=== PATIENT | male | born 1940 | race Caucasian/White ===

== ENCOUNTER 2016-10-03 12:34 | Observation (INO) | payer MEDICARE, BC ==
[2016-10-03] VITALS (9 sets, daily range): BP systolic 111–172; BP diastolic 65–88; PULSE 92–100; TEMP 97.2–98.5
[~2016-10-03] VITALS: Ht 177.8 cm; Wt 77.7 kg
[~2016-10-03 12:34] MED LIST: ASPIR-LOW81 MG PO; LISINOPRIL20 MG PO; NORVASC 5MG5 MG/TAB PO; UROCIT PO; ZOCOR40 MG PO
[2016-10-03] MEDS ORDERED: ZOCOR 40MG40 MG PO (13:54)
[2016-10-03] MEDS ORDERED: CELEXA40 MG PO (13:55)
[2016-10-03] MEDS ORDERED: RAZADYNE8 MG PO (13:57)
[2016-10-03] MEDS ORDERED: COZAAR 25MG25 MG/TAB PO (14:00)
[2016-10-03] MEDS ORDERED: NAMENDA XR 28MG PO (14:01)
[2016-10-03] MEDS ORDERED: PRESERVISIONLUT PO (14:02)
== END 2016-10-04 07:10 | disposition home or self-care (01) ==
LOC: SURG 12:34 → SDCO 12:34 → SURG 13:48 → SDCO 17:15 → SURG 20:45
DX: N20.1 Calculus of ureter (principal); I10 Essential (primary) hypertension; E78.5 Hyperlipidemia, unspecified; Z87.442 Personal history of urinary calculi
CPT/HCPCS: C1769; C1894; C2617; G0378; G0379; J0690; J1100; J2405; J2704; J3010; J7030; Q9967

== ENCOUNTER → 2017-02-23 | Outpatient (CLI) | payer MEDICARE, BC ==
[~2017-02-23] MED LIST changes: +CELEXA40 MG PO; +COZAAR 25MG25 MG/TAB PO; +NAMENDA XR 28MG PO; +PRESERVISIONLUT PO; +RAZADYNE8 MG PO; +ZOCOR 40MG40 MG PO
== END ==
LOC: COL.RAD 02-16 16:54
DX: E21.3 Hyperparathyroidism, unspecified (principal)
CPT/HCPCS: A9500

== ENCOUNTER 2019-08-27 11:19 | Day surgery (SDC) | payer MEDICARE, BC ==
[~2019-08-27] VITALS: Ht 177.8 cm; Wt 73.9 kg
[~2019-08-27 11:19] MED LIST changes: +NAMENDA 10MG TA10 MG PO; -NAMENDA XR 28MG PO; +RAZADYNE ER8 MG PO; -RAZADYNE8 MG PO; -UROCIT PO; +UROCIT-K 1010 MEQ PO
[2019-08-27 12:16] VITALS: BP 121/64; PULSE 70; TEMP 98
[2019-08-27] MEDS ORDERED: MELATIN 3 MG-11 TAB PO (12:55)
[2019-08-27] MEDS ORDERED: SINGULAIR 110 MG/TAB PO (12:55)
[2019-08-27] MEDS ORDERED: ZOCOR 20MG20 MG PO (12:57)
[2019-08-27] MEDS ORDERED: FLOMAX 0.40.4 MG/CAP PO (12:57)
[2019-08-27] MEDS ORDERED: RESTORIL 1515 MG/CAP PO (12:58)
[2019-08-27] MEDS ORDERED: THERATEARS 0.60.6 ML OU (13:01)
[2019-08-27] MEDS ORDERED: IMODIUM 2MG CAPS2 MG PO (13:02)
[2019-08-27] MEDS ORDERED: MILK OF MA400 MG/52 PO (13:02)
[2019-08-27] MEDS ORDERED: PATANOL OPHTHALM5 ML OU (13:03)
[2019-08-27] MEDS ORDERED: ROBITUSSIN100 MG/5 M PO (13:04)
[2019-08-27] MEDS ORDERED: TYLENOL 500MG500 MG PO (13:04)
[2019-08-27] MEDS ORDERED: ZOFRAN 4MG T4 MG/TAB PO (13:05)
[2019-08-27 15:25] VITALS: BP 148/67; PULSE 70
--- NOTE | 2019-08-27 15:25 | NUR ---
Patient returns to room 8 per cart from PACU accompanied by Kalina BRAGA and is awake and alert. Pulling on gown and covers and wants up to the bathroom. IV to INT. Ambulatory to the bathroom with two person assist. Able to urinate scant amount of bloody urine and returns to room.
[2019-08-27 15:40] VITALS: BP 151/82; PULSE 69
--- NOTE | 2019-08-27 15:40 | NUR ---
Drinking Sprite and eating applesauce.
[2019-08-27 15:55] VITALS: BP 148/74; PULSE 79
--- NOTE | 2019-08-27 15:55 | NUR ---
Family at side. Offers no complaints of discomfort.
--- NOTE | 2019-08-27 16:05 | NUR ---
Assisted up to the bathroom and again voids pink-tinged urine. Returns to room.
[2019-08-27 16:12] VITALS: BP 150/72; PULSE 84; TEMP 98.9
--- NOTE | 2019-08-27 16:15 | NUR ---
INT needle discontinued and site is free of redness or drainage. Assisted the patient with dressing.
--- NOTE | 2019-08-27 16:30 | NUR ---
Patient taken to the patient entrance per wheelchair by this RN and assisted into car. Dismissal instructions given to family to be handed to the [facility] staff.
--- NOTE | 2019-08-27 16:35 | NUR ---
Report called to [facility].
== END 2019-08-27 16:30 | disposition home or self-care (01) ==
LOC: SDCO 11:19
DX: N20.1 Calculus of ureter (principal); E78.00 Pure hypercholesterolemia, unspecified; I10 Essential (primary) hypertension; J44.9 Chronic obstructive pulmonary disease, unspecified; K21.9 Gastro-esophageal reflux disease without esophagitis; F03.90 Unspecified dementia, unspecified severity, without behavioral disturbance, psychotic disturbance, mood disturbance, and anxiety; Z88.2 Allergy status to sulfonamides; Z82.3 Family history of stroke; Z88.8 Allergy status to other drugs, medicaments and biological substances; Z79.82 Long term (current) use of aspirin; Z87.891 Personal history of nicotine dependence; Z85.828 Personal history of other malignant neoplasm of skin
CPT/HCPCS: C1769; J0690; J2405; J2704; J3010; J7120